=== PATIENT | male | born 1990 | race Caucasian/White ===

== ENCOUNTER 2021-05-21 13:43 | Emergency (ER) | payer OTHER ==
[~2021-05-21] VITALS: Ht 182.9 cm; Wt 90.7 kg
[2021-05-21 13:52] VITALS: BP 161/81
[2021-05-21] MEDS ORDERED: TDAP [DIPH/PERTUSSIS/TET] 0.5 ML VIAL IM ONE ×2 (14:30→14:33)
[2021-05-21] MEDS ORDERED: IBUP-1957 PO (15:08)
--- NOTE | 2021-05-21 15:12 | NUR ---
Patient discharged to home in stable condition. Written and verbal after care instructions given. Patient verbalizes understanding of instruction. Pt ambulatory with a steady gait
== END 2021-05-21 15:13 | disposition home or self-care (01) ==
LOC: ER 13:48
DX: S91.012A Laceration without foreign body, left ankle, initial encounter (principal); W26.8XXA Contact with other sharp object(s), not elsewhere classified, initial encounter; Y93.69 Activity, other involving other sports and athletics played as a team or group; Y92.89 Other specified places as the place of occurrence of the external cause; Y99.8 Other external cause status
CPT/HCPCS: 73610; 90471; 90715; 99283; A6403